=== PATIENT | male | born 1935 | race Caucasian/White ===

== ENCOUNTER 2022-07-01 11:56 | Emergency (ER) | payer OTHER ==
[~2022-07-01] VITALS: Ht 160 cm; Wt 45.4 kg
--- NOTE | 2022-07-01 12:09 | NUR ---
PT DOES NOT REMEMBER HIS HOME MEDICATIONS NAMES AND DOSAGES.
[2022-07-01 12:26] LABS: HEMATOCRIT 24.6 % (36.7-47.1); MEAN CORPUSCULAR HEMOGLOBIN 24.8 uug (23.8-33.4); MEAN CORPUSCULAR VOLUME 75.2 fL (73.0-96.2); PLATELET COUNT (AUTO) 214 K/uL (152-348)
[2022-07-01 12:42] LABS: BILIRUBIN,TOTAL 1.6 mg/dL (0.2-1.0); POTASSIUM 3.5 mmol/L (3.5-5.1); TOTAL PROTEIN, SERUM 6.4 g/dL (6.4-8.2)
--- NOTE | 2022-07-01 12:48 | NUR ---
Patient is resting comfortably in bed with eyes closed, NAD noted.
--- NOTE | 2022-07-01 13:27 | NUR ---
Called pt's brother and respiratory care practitioner Kolby @[phone]. Unable to speak to him, will follow up.
[2022-07-01] MEDS ORDERED: IV NORMAL SALINE 500 ML BAG IV ONE ×2 (14:45→17:30)
--- NOTE | 2022-07-01 15:06 | NUR ---
Pt signed consent for IV contrasted CT, placed in the chart.
[2022-07-01] MEDS ORDERED: IOHEXOL 300MG/ML 50 ML VIAL ONE (15:09)
[2022-07-01] MEDS ORDERED: SWABABLE VALVE TRANSFER SET EA MC ONE (15:09)
[2022-07-01] MEDS ORDERED: IV NORMAL SALINE 250 ML IV ONE (15:09)
[2022-07-01] MEDS ORDERED: IV NS 1000 ML 1,000 ML IV ONE (17:15)
[2022-07-01] MEDS ORDERED: AZITHROMYCIN IV 500 MG in IV DEXTROSE 5% 250 ML IV ONE (17:30)
[2022-07-01] MEDS ORDERED: CEFTRIAXONE 1 G in IV DEXTROSE 5% 50 ML IV ONE (17:30)
[2022-07-01] MEDS ORDERED: AZITHROMYCIN 500MG/ D5W 250ML IVPB **ER PYXIS ONLY IV ONE (17:54)
[2022-07-01] MEDS ORDERED: CEFTRIAXONE /D5W 50ML IVPB **ER PYXIS IV ONE (17:54)
[2022-07-01 19:01] LABS: *BILIRUBIN,URIN 1+ (NEGATIVE); *BLOOD, URINE 3+ (NEGATIVE); *CLARITY,URINE TURBID (CLEAR); *COLOR,URINE Brown (YELLOW); *KETONES,URINE TRACE (NEGATIVE); *UROBILINOGEN,URINE 0.2 E.U./dl (NORMAL); LEUKOCYTE ESTERASE ,URINE 3+ (NEGATIVE); NITRITE, URINE POSITIVE (NEGATIVE); PH,URINE 5.5 (5.0-8.0); UGLUCOSE NEGATIVE (NEGATIVE)
--- NOTE | 2022-07-01 19:10 | NUR ---
Change of shift report from Karen AGUILAR
--- NOTE | 2022-07-01 19:10 | NUR ---
Spoke with patient's brother. Made aware that patient will be transfered to [facility]
[2022-07-01 19:27] LABS: BACTERIA,URINE MANY /HPF (NONE SEEN); RBC,URINE 50-80 /HPF (0-3); SQUAMOUS EPITHELIAL CELL,UR MODERATE /HPF (NONE SEEN); WBC,URINE TNTC /HPF (0-3)
--- NOTE | 2022-07-01 20:07 | NUR ---
Zander EPRP called. Made aware of patient's negative covid and lactic acid
--- NOTE | 2022-07-01 20:08 | NUR ---
Zander ANTONIOP will call back for transfer details
--- NOTE | 2022-07-01 22:59 | NUR ---
[facility] to [facility] under Dr. Chao Chawla room 3305 number for report is [phone]. ambulance is all town with eta of [phone]. they ask to have chart labs disc all ready and will call back one hour prior to pt's garbage pick up man.
--- NOTE | 2022-07-01 23:06 | NUR ---
report given to Rob AGUILAR - [facility]
--- NOTE | 2022-07-02 00:50 | NUR ---
[facility] ambulance unit 45 arrived for patient transportation
--- NOTE | 2022-07-02 00:53 | NUR ---
Patient Tranfers to [facility] via [facility] ambulance unit [address]ician: Dr Chawla
== END 2022-07-02 01:15 | disposition short-term general hospital (02) ==
LOC: ER 11:56
DX: A41.9 Sepsis, unspecified organism (principal); J44.0 Chronic obstructive pulmonary disease with (acute) lower respiratory infection; J18.9 Pneumonia, unspecified organism; D46.9 Myelodysplastic syndrome, unspecified; I10 Essential (primary) hypertension; Z88.0 Allergy status to penicillin; Z20.822 Contact with and (suspected) exposure to COVID-19; R00.0 Tachycardia, unspecified; M84.451A Pathological fracture, right femur, initial encounter for fracture; K80.20 Calculus of gallbladder without cholecystitis without obstruction; K74.60 Unspecified cirrhosis of liver; R09.02 Hypoxemia
CPT/HCPCS: 99285; 70450; 96365; 71045; 96361; 96367; 96366; 87426; 80053; 81001; 85025; 85610; 87040; 87186; 87086; 87077; 36415; 93005; 73502; 74177; 83605; 72170; Q9967; J0456; J0696; J7040 ×4; A4663

== ENCOUNTER 2022-07-06 22:46 | Inpatient (IN) | payer OTHER ==
[~2022-07-06] VITALS: Ht 165.1 cm; Wt 49.5 kg
[~2022-07-06 22:46] MED LIST: SUCCINYLCHOLINE CHLORIDE 200 MG/10 ML VIAL ONE
[2022-07-06] MEDS ORDERED: IV NORMAL SALINE 1000 ML BAG IV ONE (23:00)
[2022-07-07] VITALS (28 sets, daily range): BP systolic 97–128; BP diastolic 50–76
[2022-07-07] MEDS ORDERED: VANCOMYCIN IV 750 MG in IV DEXTROSE 5% 150 ML IV ONE (00:45)
[2022-07-07] MEDS ORDERED: CEFEPIME HCL 2 G in IV DEXTROSE 5% 100 ML IV ONE (00:45)
[2022-07-07] MEDS ORDERED: CEFEPIME HCL 1 G VIAL ONE (00:55)
[2022-07-07] MEDS ORDERED: VANCOMYCIN HCL 500 MG VIAL ONE (00:55)
[2022-07-07] MEDS ORDERED: IV NS 1000 ML 1,000 ML IV ONE ×2 (01:00→04:00)
[2022-07-07 02:04] LABS: HEMATOCRIT 27.4 % (36.7-47.1); MEAN CORPUSCULAR HEMOGLOBIN 25.4 uug (23.8-33.4); MEAN CORPUSCULAR VOLUME 76.9 fL (73.0-96.2); PLATELET COUNT (AUTO) 194 K/uL (152-348)
[2022-07-07 02:16] LABS: CARBON DIOXIDE 22 mmol/L (21-32); CHLORIDE 99 mmol/L (98-107); CREATININE 1.2 mg/dL (0.6-1.3); GLUCOSE 73 mg/dL (74-106); POTASSIUM 4.2 mmol/L (3.5-5.1); UREA NITROGEN, BLOOD 12 mg/dL (7-18)
[2022-07-07 02:25] LABS: ALANINE AMINOTRANSFERASE 11 U/L (16-63); ALKALINE PHOSPHATASE 125 U/L (50-136); ASPARTATE AMINOTRANSFERASE 40 U/L (15-37); BILIRUBIN,DIRECT 0.6 mg/dL (0.0-0.2); BILIRUBIN,TOTAL 1.2 mg/dL (0.2-1.0); TOTAL PROTEIN, SERUM 5.3 g/dL (6.4-8.2)
--- NOTE | 2022-07-07 02:30 | NUR ---
Patient is hypotensive 60 SBP, HR in the 30s. Dr Paredes made aware
--- NOTE | 2022-07-07 02:40 | NUR ---
Contacted [facility]. They were updated on patient's status and will contact physician on duty.
[2022-07-07 02:41] LABS: *BILIRUBIN,URIN NEGATIVE (NEGATIVE); *BLOOD, URINE 3+ (NEGATIVE); *CLARITY,URINE CLOUDY (CLEAR); *COLOR,URINE YELLOW (YELLOW); *KETONES,URINE NEGATIVE (NEGATIVE); *UROBILINOGEN,URINE 0.2 E.U./dl (NORMAL); LEUKOCYTE ESTERASE ,URINE 3+ (NEGATIVE); NITRITE, URINE POSITIVE (NEGATIVE); UGLUCOSE NEGATIVE (NEGATIVE)
[2022-07-07 02:48] LABS: BACTERIA,URINE MANY /HPF (NONE SEEN); RBC,URINE 20-50 /HPF (0-3); SQUAMOUS EPITHELIAL CELL,UR FEW /HPF (NONE SEEN); WBC,URINE TNTC /HPF (0-3)
[2022-07-07 02:53] LABS: BAND % (MANUAL) 12 % (0-10); LYMPHOCYTES % (MANUAL) 5 % (20-40); METAMYELOCYTES % 2 % (0-1); MONOCYTES % (MANUAL) 2 % (2-10); MYELOCYTES % 1 % (0-0); NEUTROPHILS % (MANUAL) 78 % (42-75)
[2022-07-07] MEDS ORDERED: LORAZEPAM 1 MG TABLET ONE (02:56)
[2022-07-07] MEDS ORDERED: GUAI-717 PO (02:57)
[2022-07-07] MEDS ORDERED: CEFP100T9 PO (02:57)
[2022-07-07] MEDS ORDERED: AMIT25TA24 PO (02:57)
[2022-07-07] MEDS ORDERED: DOCU-141 PO (02:57)
--- NOTE | 2022-07-07 03:10 | NUR ---
Called RT. Patient for intubation
[2022-07-07] MEDS ORDERED: ETOMIDATE 20 MG/10 ML VIAL IV ONE (03:15)
[2022-07-07] MEDS ORDERED: SUCCINYLCHOLINE CHLORIDE 200 MG/10 ML VIAL IV ONE (03:15)
--- NOTE | 2022-07-07 03:25 | NUR ---
Patient intubated by Dr Paredes. RT at bedside
--- NOTE | 2022-07-07 03:34 | NUR ---
Called [facility] for panel call
--- NOTE | 2022-07-07 03:37 | NUR ---
Dr Paredes talking to Marisa Mercer INTERNIST MEDICAL DOCTOR MD for admission
[2022-07-07] MEDS ORDERED: PROPOFOL 100 ML IV PRN (03:45)
[2022-07-07] MEDS ORDERED: MAGNESIUM HYDROXIDE 30 ML LIQUID UDC PO PRN (03:45)
[2022-07-07] MEDS ORDERED: ONDANSETRON 4 MG/2 ML VIAL IV PRN (03:45)
[2022-07-07] MEDS ORDERED: LACTULOSE 20 G/30 ML LIQUID UDC NG ONE ×2 (03:45→10:30)
[2022-07-07] MEDS ORDERED: IV NS 1000 ML 1,000 ML IV PRN (03:45)
[2022-07-07] MEDS ORDERED: REMEDY ESSENTIAL ZINC PASTE 113 GM TP PRN (03:45)
[2022-07-07] MEDS ORDERED: ACETAMINOPHEN 325 MG TABLET PO PRN (03:45)
[2022-07-07] MEDS ORDERED: LACTULOSE 20 G/30 ML LIQUID UDC ONE ×4 (03:52→17:04)
--- NOTE | 2022-07-07 03:54 | NUR ---
called patient's brother Kolby Lopez to update about patient status and to inform that patient will be admitted. Tried leaving a voice message but mailbox is full. Was not able to contact.
[2022-07-07] MEDS ORDERED: IV D5W-0.9% NS 1000 ML BAG IV PRN (04:15)
--- NOTE | 2022-07-07 04:30 | NUR ---
Marisa Mercer LIFE SKILLS INSTRUCTOR at bedside
--- NOTE | 2022-07-07 04:39 | NUR ---
SYED PATTON ORTHODONTIST ASSISTANT came and saw patient ,examined patient with orders .
[2022-07-07] MEDS ORDERED: PHENYLEPHRINE IV 100 MG in IV NORMAL SALINE 240 ML IV PRN (04:45)
[2022-07-07] MEDS ORDERED: PROPOFOL 100 ML ONE ×3 (04:58→22:26)
[2022-07-07] MEDS ORDERED: CEFEPIME HCL 1 G in IV DEXTROSE 5% 50 ML IV SCH ×2 (06:00→09:00)
--- NOTE | 2022-07-07 07:25 | NUR ---
RECEIVED PATIENT ON ANDERSON VENT WITH GIVEN SETTINGS OF AC RR 18, VT 400, PEEP +5, 100% FIO2. ETT 7.5 @ APPROX 23CM ~LIP. ALARMS ON AND AUDIBLE, WITH VENTILATOR PLUGGED IN RED OUTLET. AMBUBAG AT BEDSIDE. TITRATED FIO2 TO 80% AND BORIS WELL. WILL CONTINUE TO MONITOR THROUGHOUT SHIFT.
[2022-07-07] MEDS ORDERED: DOCUSATE SODIUM 100 MG/10 ML LIQUID UDC ONE (09:21)
[2022-07-07] MEDS ORDERED: PANTOPRAZOLE SODIUM 40 MG VIAL ONE (09:21)
[2022-07-07] MEDS ORDERED: ENOXAPARIN SODIUM 40 MG/0.4 ML DISP.SYRIN SQ ONE (09:21)
[2022-07-07] MEDS: PANTOPRAZOLE SODIUM 40 MG VIAL IV SCH (09:44)
[2022-07-07] MEDS: DOCUSATE SODIUM 100 MG CAPSULE PO SCH (09:44)
[2022-07-07] MEDS: LACTULOSE 20 G/30 ML LIQUID UDC NG SCH ×2 (09:44→17:10)
[2022-07-07] MEDS: ENOXAPARIN SODIUM 40 MG/0.4 ML DISP.SYRIN SQ SCH (09:45)
[2022-07-07] MEDS ORDERED: LACTULOSE 20 G/30 ML LIQUID UDC PO SCH (10:00)
[2022-07-07] MEDS ORDERED: LACTULOSE 20 G/30 ML LIQUID UDC GT ONE (10:30)
[2022-07-07] MEDS ORDERED: LACTULOSE 20 G/30 ML LIQUID UDC PO ONE (10:30)
[2022-07-07] MEDS ORDERED: CEFEPIME HCL 2 G in IV DEXTROSE 5% 100 ML IV SCH (12:00)
--- NOTE | 2022-07-07 13:09 | NUR ---
called brother, Kolby, unable to leave message and no answer to obtain consent for CTA. will attempt to call back later
[2022-07-07] MEDS ORDERED: SWABABLE VALVE TRANSFER SET EA MC ONE (13:13)
[2022-07-07] MEDS ORDERED: IV NORMAL SALINE 250 ML IV ONE (13:13)
[2022-07-07] MEDS ORDERED: IOHEXOL 350 100 ML INFUS..BTL ONE (13:14)
[2022-07-07] MEDS ORDERED: IPRATROPIUM BROMIDE 0.5 MG/2.5 ML NEBU ONE ×2 (13:26→19:36)
[2022-07-07] MEDS: LEVALBUTEROL HCL 1.25 MG/0.5 ML NEB NEB SCH ×3 (13:26→21:44)
[2022-07-07] MEDS: IPRATROPIUM BROMIDE 0.5 MG/2.5 ML NEBU NEB SCH ×2 (13:26→20:55)
[2022-07-07] MEDS ORDERED: LEVALBUTEROL HCL 1.25 MG/0.5 ML NEB NEB SCH (13:30)
[2022-07-07] MEDS ORDERED: ALBUTEROL SULFATE 2.5 MG/3 ML NEBU NEB SCH (13:30)
[2022-07-07] MEDS ORDERED: POTA10CA43 PO (14:05)
[2022-07-07] MEDS ORDERED: FURO-152 PO (14:05)
[2022-07-07] MEDS ORDERED: COLC0.6C3 PO (14:05)
[2022-07-07] MEDS ORDERED: HYDR-894 PO (14:05)
[2022-07-07] MEDS ORDERED: ALEN70TA80 PO (14:05)
[2022-07-07] MEDS ORDERED: ATEN25TA PO (14:05)
[2022-07-07] MEDS ORDERED: AMLO-212 PO ×2 (14:05)
[2022-07-07] MEDS: PROPOFOL 100 ML IV PRN ×2 (14:05→22:28)
[2022-07-07] MEDS ORDERED: LEFL20TA GT (14:05)
[2022-07-07] MEDS ORDERED: MEROPENEM 1GM/NS 100ML IVPB **ER PYXIS ONLY IV ONE (14:49)
[2022-07-07] MEDS: MEROPENEM 1 G in IV NORMAL SALINE 100 ML IV SCH (14:51)
[2022-07-07] MEDS: IV NS 1000 ML 1,000 ML IV PRN (14:52)
[2022-07-07] MEDS ORDERED: ALENDRONATE SODIUM 70 MG TABLET PO SCH (16:15)
[2022-07-07] MEDS ORDERED: Medication Not On Formulary EA (Colchicine 0.6 MG) PO PRN (16:15)
[2022-07-07] MEDS ORDERED: COLCHICINE 0.6 MG TABLET PO PRN (16:45)
[2022-07-07] MEDS ORDERED: VANCOMYCIN IV 500 MG in IV DEXTROSE 5% 100 ML IV SCH ×2 (17:00→18:00)
--- NOTE | 2022-07-07 20:00 | NUR ---
patient in bed orally intubated on vent .rate18/400/peep 5 fio2 40% ,tolerating vent setting saturation 100% rr 18. no s/s of pain patient on propofol drip at 40 mcg/kg/min. f.c to bsd with yellowish urine . ogt to low intermittent suction .
[2022-07-07] MEDS: REMEDY ESSENTIAL ZINC PASTE 113 GM TOP SCH (20:48)
[2022-07-07] MEDS: VANCOMYCIN IV 500 MG in IV DEXTROSE 5% 100 ML IV SCH (20:49)
[2022-07-08] VITALS (54 sets, daily range): BP systolic 86–143; BP diastolic 41–71
--- NOTE | 2022-07-08 | NUR ---
TOLERATING VENT SETTING NO RESPIRATORY DISTRESS NOTED,SATURATION 97 TO 100% .
[2022-07-08] MEDS: MEROPENEM 1 G in IV NORMAL SALINE 100 ML IV SCH ×2 (01:32→13:53)
[2022-07-08] MEDS ORDERED: IPRATROPIUM BROMIDE 0.5 MG/2.5 ML NEBU ONE ×4 (01:51→19:20)
[2022-07-08] MEDS: LEVALBUTEROL HCL 1.25 MG/0.5 ML NEB NEB SCH ×4 (02:14→19:22)
[2022-07-08] MEDS: IPRATROPIUM BROMIDE 0.5 MG/2.5 ML NEBU NEB SCH ×4 (02:14→19:21)
[2022-07-08] MEDS: IV NS 1000 ML 1,000 ML IV PRN (02:48)
--- NOTE | 2022-07-08 03:57 | NUR ---
PATIENT ON CONT ANDERSON VENT WITH 7.5 ET/TUBE IN PLACE, 23 LIP LINE, MOVE ANCHOR FAST Q2 HOURS, PT OS SEDATED ON DIPRIVAN, MOSTLY CONTROLLED VENTILATION, SUCTION LIGHT [place] TINGE SECRETIONS, VENT SETTINGS, A/CC 18, VT 400ML , PEEP5, FIO2 @ 40%,HR 102 APPROX, ABG IN AM BEFORE 6AM. Wale MULLREP Addendum: 07/08/22 at 0400 by MAGALY SANCHEZ RT Amended: Links added.
--- NOTE | 2022-07-08 04:05 | NUR ---
PATIENT GIVEN X 2 - XOPENEX AND ARABELLA AGUILAR ON [facility] [place] [facility] Addendum: 07/08/22 at 0406 by MAGALY SANCHEZ RT Amended: Links added.
--- NOTE | 2022-07-08 04:30 | NUR ---
incontinent of stool moderate in amt soft greenish in color stool . changed soiled linens , turend and reposition off loaded heels with pillows . turned and reposition .suction via ett and via mouth oral care done .
[2022-07-08 04:52] LABS: MEAN CORPUSCULAR HEMOGLOBIN 25.8 uug (23.8-33.4); MEAN CORPUSCULAR VOLUME 77.7 fL (73.0-96.2); PLATELET COUNT (AUTO) 125 K/uL (152-348)
--- NOTE | 2022-07-08 05:00 | NUR ---
am care done ,bath patient changed soiled linens and gown ,f/c done turned and reposition patient ,suction via ett and via mouth .
[2022-07-08 05:02] LABS: ALANINE AMINOTRANSFERASE 26 U/L (16-63); ALKALINE PHOSPHATASE 119 U/L (50-136); ASPARTATE AMINOTRANSFERASE 80 U/L (15-37); BILIRUBIN,TOTAL 1.1 mg/dL (0.2-1.0); CARBON DIOXIDE 20 mmol/L (21-32); CHLORIDE 104 mmol/L (98-107); CREATININE 1.6 mg/dL (0.6-1.3); GLUCOSE 86 mg/dL (74-106); POTASSIUM 3.3 mmol/L (3.5-5.1); TOTAL PROTEIN, SERUM 4.8 g/dL (6.4-8.2); UREA NITROGEN, BLOOD 14 mg/dL (7-18)
[2022-07-08 05:29] LABS: MAGNESIUM 1.2 mg/dL (1.8-2.4)
[2022-07-08] MEDS ORDERED: PROPOFOL 100 ML ONE ×3 (05:32→21:53)
[2022-07-08 06:13] LABS: ABG BASE EXCESS -5.9 mmol/L; ABG HCO3 17.3 mmol/L; ABG PCO2 25.7 mmHg (35.0-45.0); ABG PH 7.446 (7.350-7.450); ABG PO2 76.9 mmHg (75.0-100.0); ABG SITE RIGHT BRACHIAL; ABG TOTAL HEMOGLOBIN 7.8 G/dL (13.5-18.0); COHb 0.5 % (0.5-1.5); MetHb 0.3 % (0.0-1.5); O2Hb 94.6 % (94.0-97.0); VENT MODE VENT - A/C; VT, ABG 400 mL
[2022-07-08] MEDS: PROPOFOL 100 ML IV PRN ×2 (06:25→15:10)
--- NOTE | 2022-07-08 08:28 | NUR ---
Doctor cornell in ER to see patient.
[2022-07-08] MEDS ORDERED: LEFLUNOMIDE 20 MG GT SCH (09:00)
[2022-07-08] MEDS: DOCUSATE SODIUM 100 MG CAPSULE PO SCH (09:00)
[2022-07-08] MEDS ORDERED: [UNRECOGNIZED DRUG - OTHER] PO SCH (09:00)
[2022-07-08] MEDS ORDERED: LEFLUNOMIDE 20 MG PO SCH (09:00)
[2022-07-08] MEDS ORDERED: POTASSIUM CHLORIDE 50 ML ONE (09:15)
[2022-07-08] MEDS ORDERED: MAGNESIUM SULFATE/D5W 100 ML ONE ×2 (09:16→10:49)
[2022-07-08] MEDS ORDERED: PANTOPRAZOLE SODIUM 40 MG VIAL ONE (09:17)
[2022-07-08] MEDS ORDERED: DOCUSATE SODIUM 100 MG CAPSULE PO ONE (09:18)
[2022-07-08] MEDS ORDERED: LACTULOSE 20 G/30 ML LIQUID UDC ONE (09:18)
[2022-07-08] MEDS ORDERED: ENOXAPARIN SODIUM 40 MG/0.4 ML DISP.SYRIN SQ ONE (09:19)
[2022-07-08] MEDS: PANTOPRAZOLE SODIUM 40 MG VIAL IV SCH (09:41)
[2022-07-08] MEDS: POTASSIUM CHLORIDE 50 ML IV SCH ×2 (09:44→13:01)
[2022-07-08] MEDS: LACTULOSE 20 G/30 ML LIQUID UDC NG SCH (09:44)
[2022-07-08] MEDS: MAGNESIUM SULFATE/D5W 100 ML IV SCH ×2 (09:45→10:57)
[2022-07-08] MEDS: ENOXAPARIN SODIUM 40 MG/0.4 ML DISP.SYRIN SQ SCH (09:47)
[2022-07-08] MEDS: REMEDY ESSENTIAL ZINC PASTE 113 GM TOP SCH ×2 (09:53→21:02)
[2022-07-08] MEDS: VANCOMYCIN IV 500 MG in IV DEXTROSE 5% 100 ML IV SCH (13:53)
--- NOTE | 2022-07-08 19:45 | NUR ---
BEDSIDE REPORT OBTAINED AND PATIENT ON VENT, AC, RATE 14, TV 400, FIO2 30%, PEEP +5. SKIN COLOR PALE, PER CM SR, ON PROPOFOL AT 40 MCG/KG/MIN. NO IVF, UOP 5 ML/HR, AT THIS TIME. OG DRAINING LG AMT OF GREENISH COLOR GASTRIC SECRETIONS. NOTIFIED CHARGE NURSE NO IVF AND PATIENT ON PROPOFOL AND NO UOP. NOTIFIED TO CALL [facility] ONCALL PHYSICIAN.REPOSITION FOR COMFORT AND TITRATION OF PROPOFOL INITIATED. HYPOTENSION NOTED AND PATIENT MONITOR INDICATES ST 110 TO 114 AT REST. ABN LABS REVIEWED H/H LOW.VS MONITOR Q 15 MINUTES
--- NOTE | 2022-07-08 21:00 | NUR ---
PATIENT CONTINUES ON VENT AC MODE, RATE 14, FIO2 30%, TV 400 AND PEEP +5,. 7.5 ETT TAPE RIGHT LIP 23 CM. OG TUBE TO CONT LOW SUCTION DRAINING LARGE AMT OF GREENISH GASTRIC SECRETIONS. SKIN COLOR PALE. HERNÁNDEZ CATH PATENT AND INTACT DRAINING 5 ML PER URINE. CALLED [facility] AND CHATO BURKS NOTIFIED-NO NEW ORDERS RECEIVED. CONT TO MONITOR.NURSING SUPERVISIOR AWARE.
[2022-07-09] VITALS (22 sets, daily range): BP systolic 35–99; BP diastolic 18–55
[2022-07-09] MEDS ORDERED: EPINEPHRINE 1:10,000 1 MG/10 ML DISP.SYRIN ONE
[2022-07-09] MEDS ORDERED: ATROPINE SULFATE 1 MG/10 ML DISP.SYRIN ONE
[2022-07-09] MEDS ORDERED: CALCIUM CHLORIDE 1 GM/10 ML DISP.SYRIN IVP ONE
--- NOTE | 2022-07-09 | NUR ---
TURN AND REPOSITION AND ORAL CARE RENDER. REVIEWED NOTES OF PUL, CARD, AND ICE CREAM MIXER CHATO BURKS COMMENTS ON IVF FOR HYDRATION BUT NO FLUIDS INFUSING AND UOP DOWN TO 5 ML. WITH B/P 82/45/MAP (53). NOTIFIED NURSING SPINNING MULE OPERATOR.
[2022-07-09] MEDS: PROPOFOL 100 ML IV PRN (00:30)
[2022-07-09] MEDS ORDERED: IPRATROPIUM BROMIDE 0.5 MG/2.5 ML NEBU ONE (01:00)
[2022-07-09] MEDS: IPRATROPIUM BROMIDE 0.5 MG/2.5 ML NEBU NEB SCH (01:02)
[2022-07-09] MEDS: LEVALBUTEROL HCL 1.25 MG/0.5 ML NEB NEB SCH (01:02)
[2022-07-09] MEDS: MEROPENEM 1 G in IV NORMAL SALINE 100 ML IV SCH (01:44)
--- NOTE | 2022-07-09 04:27 | NUR ---
COMMISSIONS SPECIALIST AT BEDSIDE AND ATTEMPTING TO REACH [facility] PANCHO pastor NP B/P CONTS TO DROP 72/44 MAP 52. AWAITING CALL BACK. PROPOFOL STOPPED.
[2022-07-09] MEDS ORDERED: PHENYLEPHRINE 10 MG/1 ML VIAL ONE (04:55)
[2022-07-09] MEDS ORDERED: IV NORMAL SALINE 500 ML BAG IV ONE (05:00)
--- NOTE | 2022-07-09 05:13 | NUR ---
PER CM V-FIB RATE 37, DR. ANGELES AT BEDSIDE, CODE BLUE CALLED SEE FLOW SHEET.
--- NOTE | 2022-07-09 05:25 | NUR ---
CODE ENDED, PT AND KIKI KATY NOTIFIED BY DR. ANGELES.CHARGE NURSE TO CALL 1 LEGACY AND I PRIMARY RN TO NOTIFY PATIENT'S NEXT OF KIN.
--- NOTE | 2022-07-09 05:30 | NUR ---
Patient was received on AC 14, 400, +5, 40%,intubated with a 7.5 EtTube, ~ 23 cm. Tolerating CMV settings well. Alarms audible. Vent plugged in to red outlet. Airway is secured and patent, Small amounts of thick rowell secretions noted. Inline treatments tolerated well, no adverse reactions noted. @ 0512, called by COLORER MACHINE to assess patient with low BP and bradycardia. Upon entering patient Hr dropped to asystole. Code initiated, BVM @ 100% FiO2 + compressions. Dr Vega pronounced patient.
--- NOTE | 2022-07-09 05:45 | NUR ---
DR Vega Informed Kartik Alvarenga NP that patient had .
--- NOTE | 2022-07-09 05:50 | NUR ---
Called [facility] and spoke to Dot who gave referral number [id number].
--- NOTE | 2022-07-09 05:59 | NUR ---
Called [facility] office and spoke Matt who states it will not be a cell attendant helper case.
--- NOTE | 2022-07-09 06:30 | NUR ---
ATTEMPTED TO NOTIFY PATIENT'S BROTHER BUT ANSWERING MACHINE FULL. NOTIFIED CHARGE NURSE
--- NOTE | 2022-07-09 06:40 | NUR ---
[place] [facility] [place]
[2022-07-09] MEDS ORDERED: MUPIROCIN 2% OINT 22 GM TUBE NS SCH (09:00)
== END 2022-07-09 06:00 | DRG 871 ==
LOC: ER 22:48 → TRANSITION 07-07 08:05
PROVIDERS: ADMIT Nurse Practitioner Acute Care; ATTEND Internal Medicine
PROC: 5A1945Z Respiratory Ventilation, 24-96 Consecutive Hours (ICD-10-PCS; principal; 2022-07-07)
PROC: 0BH17EZ Insertion of Endotracheal Airway into Trachea, Via Natural or Artificial Opening (ICD-10-PCS; 2022-07-07)
PROC: 5A12012 Performance of Cardiac Output, Single, Manual (ICD-10-PCS; 2022-07-09)
DX: A41.9 Sepsis, unspecified organism (principal); E43 Unspecified severe protein-calorie malnutrition; J96.01 Acute respiratory failure with hypoxia; J69.0 Pneumonitis due to inhalation of food and vomit; N17.0 Acute kidney failure with tubular necrosis; G92.8 Other toxic encephalopathy; J15.9 Unspecified bacterial pneumonia; I50.31 Acute diastolic (congestive) heart failure; E87.1 Hypo-osmolality and hyponatremia; E87.2 Acidosis; N39.0 Urinary tract infection, site not specified; R64 Cachexia; Z68.1 Body mass index [BMI] 19.9 or less, adult; K76.6 Portal hypertension; J44.0 Chronic obstructive pulmonary disease with (acute) lower respiratory infection; Z16.12 Extended spectrum beta lactamase (ESBL) resistance; I13.0 Hypertensive heart and chronic kidney disease with heart failure and stage 1 through stage 4 chronic kidney disease, or unspecified chronic kidney disease; R65.20 Severe sepsis without septic shock; D63.8 Anemia in other chronic diseases classified elsewhere; E16.2 Hypoglycemia, unspecified; F41.9 Anxiety disorder, unspecified; E88.09 Other disorders of plasma-protein metabolism, not elsewhere classified; N18.9 Chronic kidney disease, unspecified; Z20.822 Contact with and (suspected) exposure to COVID-19; Z87.01 Personal history of pneumonia (recurrent); Z88.0 Allergy status to penicillin; Z85.6 Personal history of leukemia; R62.7 Adult failure to thrive; R74.01 Elevation of levels of liver transaminase levels; Z91.81 History of falling; K74.60 Unspecified cirrhosis of liver; D46.9 Myelodysplastic syndrome, unspecified; J44.9 Chronic obstructive pulmonary disease, unspecified; R16.1 Splenomegaly, not elsewhere classified; L89.159 Pressure ulcer of sacral region, unspecified stage; E87.6 Hypokalemia; K72.90 Hepatic failure, unspecified without coma; K80.20 Calculus of gallbladder without cholecystitis without obstruction; F03.90 Unspecified dementia, unspecified severity, without behavioral disturbance, psychotic disturbance, mood disturbance, and anxiety; N28.1 Cyst of kidney, acquired
CPT/HCPCS: 36415; 36600; 70030-TC; 70450; 71045; 71275; 76705; 83605; 83735; 84100; 84484; 85025; 85730; 86803; 87040; 87070; 87077; 87086; 87806; 93005; 93307; 94002; 94003; 94640; 94660; A4663; A6209; C9113; G0378; J0171; J0330; J0461; J0692; J1650; J2185; J2370; J3370; J3475; J3480; J3490; J3590; J7040; J7042; J7050; Q9967